=== PATIENT | male | born 1970 | race Caucasian/White ===

== ENCOUNTER 2019-01-25 00:07 | Emergency (ER) | payer MEDICARE ==
[2019-01-25] MEDS ORDERED: CEPHALEXIN 500 MG CAPSULE PO STA (00:29)
--- NOTE | 2019-01-25 00:37 | Emergency Department Record ---
History of Present Illness - General Chief complaint: Toothache Stated complaint: TOOTH INFECTION Time Seen by Provider: 01/25/19 00:24 Source: Patient Mode of Arrival: Ambulatory Limitations: No limitations - History of Present Illness Initial comments: pt feels he has an abscess starting in his mouth. he has no dentist. MD complaint: Tooth pain Onset/Timin -: Days(s) Location: Tooth # Severity scale (1-10): 4 Consistency: Constant, Getting worse Improves with: None Worsens with: None Context-Epistaxis: History of similar Context- Dental: History of dental caries, Poor dental care Associated Symptoms: Gum swelling, Toothache - Related Data Home Medications Medication Instructions Recorded Confirmed Last Taken Methadone HCl 10 mg PO BID 01/25/19 01/25/19 Unknown Previous Rx's Medication Instructions Recorded Alcohol Antiseptic Pads [Alcohol 1 each TP BID #100 med..pad 03/27/15 Wipes] Cephalexin [Keflex] 500 mg PO TID #20 cap 01/25/19 Allergies Allergy/AdvReac Type Severity Reaction Status Date / Time amoxicillin trihydrate Allergy rash Verified 01/25/19 00:16 [From Augmentin] potassium clavulanate Allergy rash Verified 01/25/19 00:16 [From Augmentin] Travel Screening - Travel/Exposure Within Last 30 Days Have you traveled within the last 30 days?: No - Travel Symptoms Symptom Screening: None Review of Systems Reviewed: No additional complaints except as noted below Constitutional: Reports: As per HPI. Denies: Chills, Fever, Malaise, Night sweats, Weakness, Weight change Eyes: Reports: As per HPI. Denies: Eye discharge, Eye pain, Photophobia, Vision change ENT: Reports: As per HPI, Dental pain. Denies: Congestion, Ear pain, Epistaxis, Hearing loss, Throat pain Respiratory: Reports: As per HPI. Denies: Cough, Dyspnea, Hemoptysis, Stridor, Wheezes Cardiovascular: Reports: As per HPI. Denies: Arrhythmia, Chest pain, Dyspnea on exertion, Edema, Murmurs, Orthopnea, Palpitations, Paroxysmal nocturnal dyspnea, Rheumatic Fever, Syncope Endocrine: Reports: As per HPI. Denies: Fatigue, Heat or cold intolerance, Polydipsia, Polyuria Gastrointestinal: Reports: As per HPI. Denies: Abdominal pain, Constipation, Diarrhea, Hematemesis, Hematochezia, Melena, Nausea, Vomiting Genitourinary: Reports: As per HPI. Denies: Dysuria, Frequency, Hematuria, Incontinence, Retention, Testicular pain, Testicular mass, Urgency Musculoskeletal: Reports: As per HPI. Denies: Arthralgia, Back pain, Gout, Joint swelling, Myalgia, Neck pain Skin: Reports: As per HPI. Denies: Bruising, Change in color, Change in hair/n ails, Lesions, Pruritus, Rash Neurological: Reports: As per HPI. Denies: Abnormal gait, Confusion, Headache, Numbness, Paresthesias, Seizure, Tingling, Tremors, Vertigo, Weakness Psychiatric: Reports: As per HPI. Denies: Anxiety, Auditory hallucinations, Depression, Homicidal thoughts, Suicidal thoughts, Visual hallucinations Hematological/Lymphatic: Reports: As per HPI. Denies: Anemia, Blood Clots, Easy bleeding, Easy bruising, Swollen glands Past Medical History - SOCIAL HISTORY Smoking Status: Current every day smoker - RESPIRATORY Hx Respiratory Disorders: No - CARDIOVASCULAR Hx Cardio Disorders: Yes Hx Hypertension: Yes - NEURO Hx Neuro Disorders: Yes Hx Neuropathy: Yes - GI Hx GI Disorders: No - Hx Genitourinary Disorders: No - ENDOCRINE Hx Endocrine Disorders: Yes Hx Diabetes: Yes - MUSCULOSKELETAL Hx Musculoskeletal Disorders: Yes Hx Back Injury: Yes - PSYCH Hx Psych Problems: No - HEMATOLOGY/ONCOLOGY Hx Hematology/Oncology Disorders: No Family Medical History Any Significant Family History?: Yes Hx Diabetes: Mother Physical Exam - General General Appearance: Alert, Oriented x3, Cooperative, No acute distress - Head Head exam: Normal inspection - Eye Eye exam: Normal appearance, PERRL, EOMI Pupils: Normal accommodation - ENT ENT exam: Normal exam, Mucous membranes moist, Normal external ear exam, Normal orophraynx, TM's normal bilaterally Ear exam: Normal external inspection. negative: External canal tenderness Nasal Exam: Normal inspection. negative: Discharge, Sinus tenderness Mouth exam: Normal external inspection, Tongue normal Teeth exam: Dental caries, Dental tenderness #, Gingival enlargement Throat exam: Normal inspection. negative: Tonsillar erythema, Tonsillar exudate - Neck Neck exam: Normal inspection, Full ROM. negative: Tenderness - Respiratory Respiratory exam: Normal lung sounds bilaterally. negative: Respiratory distress - Cardiovascular Cardiovascular Exam: Regular rate, Normal rhythm, Normal heart sounds - GI/Abdominal GI/Abdominal exam: Soft, Normal bowel sounds. negative: Tenderness - Rectal Rectal exam: Deferred - exam: Deferred - Extremities Extremities exam: Normal inspection, Full ROM, Normal capillary refill. negative: Tenderness - Back Back exam: Reports: Normal inspection, Full ROM. Denies: Muscle spasm, Rash noted, Tenderness - Neurological Neurological exam: Alert, Normal gait, Oriented X3, Reflexes normal - Psychiatric Psychiatric exam: Normal affect, Normal mood - Skin Skin exam: Dry, Intact, Normal color, Warm Course Vital Signs 01/25/19 00:16 Temperature 98.2 F Pulse Rate [ 78 Left] Respiratory 16 Rate Blood Pressure 128/86 [Left Arm] Pulse Ox 98 Disposition Disposition: Discharge Clinical Impression: Dental abscess Disposition: Home, Self-Care Condition: (1) Good Instructions: Dental Abscess (ED), Toothache (ED) Additional Instructions: follow up with dentist oliver. return sooner if worse. sleep elevated Prescriptions: Cephalexin [Keflex] 500 mg PO TID #20 cap Quality - Quality Measures Quality Measures: N/A - Blood Pressure Screening Does Patient Have Any of the Following: No Blood Pressure Classification: Pre-Hypertensive BP Reading Systolic Measurement: 128 Diastolic Measurement: 86 Screening for High Blood Pressure: < Pre-Hypertensive BP, F/U Documented > [G8950] Pre-Hypertensive Follow-up Interventions: Follow-up with rescreen every year.
== END 2019-01-25 00:48 | disposition home or self-care (01) ==
LOC: ER 00:07
DX: K04.7 Periapical abscess without sinus (principal); I10 Essential (primary) hypertension; F17.210 Nicotine dependence, cigarettes, uncomplicated
CPT/HCPCS: 99282

== ENCOUNTER 2019-07-04 12:57 | Emergency (ER) | payer MEDICARE ==
--- NOTE | 2019-07-04 13:24 | Emergency Department Record ---
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 Hx of similar related to poor dentition. No fever. Morning FBS 120. No LALA or swallowing. Not draining. Local pain. Many mission teeth. Onset/Timin -: Week(s) Location: Other Severity: Moderate Severity scale (1-10): 4 Quality: Other Consistency: Constant Improves with: NSAID Worsens with: Eating, Position - Related Data Previous Rx's Medication Instructions Recorded Alcohol Antiseptic Pads [Alcohol 1 each TP BID #100 med..pad 03/27/15 Wipes] Erythromycin Base [Erythromycin] 333 mg PO TID 7 Days #21 tablet. 07/04/19 Allergies Allergy/AdvReac Type Severity Reaction Status Date / Time amoxicillin trihydrate Allergy rash Verified 01/25/19 00:16 [From Augmentin] potassium clavulanate Allergy rash Verified 01/25/19 00:16 [From Augmentin] Travel Screening - Travel/Exposure Within Last 30 Days Have you traveled within the last 30 days?: No - Travel/Exposure Within Last Year Have you traveled outside the [place] in the last year?: No - Additonal Travel Details Have you been exposed to anyone with a communicable illness?: No - Travel Symptoms Symptom Screening: None Review of Systems Constitutional: Denies: Chills, Fever Eyes: Denies: Photophobia ENT: Denies: Congestion Respiratory: Denies: Cough Cardiovascular: Denies: Chest pain Endocrine: Denies: Fatigue Gastrointestinal: Denies: Nausea, Vomiting Musculoskeletal: Denies: Back pain Skin: Denies: Rash Neurological: Denies: Tingling Psychiatric: Denies: Anxiety Hematological/Lymphatic: Denies: Anemia Past Medical History - SOCIAL HISTORY Smoking Status: Current every day smoker - RESPIRATORY Hx Respiratory Disorders: No - CARDIOVASCULAR Hx Cardio Disorders: Yes Hx Hypertension: Yes - NEURO Hx Neuro Disorders: Yes Hx Neuropathy: Yes - GI Hx GI Disorders: No - Hx Genitourinary Disorders: No - ENDOCRINE Hx Endocrine Disorders: Yes Hx Diabetes: Yes - MUSCULOSKELETAL Hx Musculoskeletal Disorders: Yes Hx Back Injury: Yes - PSYCH Hx Psych Problems: No - HEMATOLOGY/ONCOLOGY Hx Hematology/Oncology Disorders: No Family Medical History Any Significant Family History?: Yes Hx Diabetes: Mother Physical Exam - General General Appearance: Alert, Oriented x3, Cooperative, No acute distress - Head Head exam: Atraumatic - Eye Eye exam: PERRL - ENT ENT exam: Mucous membranes moist Mouth exam: Other (Hard palate left anterior with 2cm area of swelling/induration without draining or erythema. ) Teeth exam: Other (multiple missing teeth. No gum inflamation or abscess. No dental pain with percussion. ) - Neck Neck exam: Normal inspection, Full ROM. negative: Lymphadenopathy, Tenderness - Respiratory Respiratory exam: Normal lung sounds bilaterally. negative: Respiratory distress - Cardiovascular Cardiovascular Exam: Regular rate - GI/Abdominal GI/Abdominal exam: Soft - Neurological Neurological exam: Alert, Normal gait, Oriented X3 - Psychiatric Psychiatric exam: Normal affect, Normal mood - Skin Skin exam: Normal color. negative: Rash Course Vital Signs 07/04/19 13:01 Temperature 98.8 F Pulse Rate 88 Pulse Rate [ 88 Pulse Ox Probe] Respiratory 16 Rate Blood Pressure 122/91 Blood Pressure 122/91 [Right Arm] Pulse Ox 97 - Reevaluation(s) Reevaluation #1: 07/04/19 13:28 Hard palate abscess PROCEDURE: 10cc syringe with 2 cc of 1% lido without epi, 18g needle: aspirated after 1cc of lido infiltrated - 1cc of thick yellow material followed by blood. Immediate relief of pressure. Pt expressed additional material with a towel and pressure of his thumb. Up at sink and swish and spit with warm water. Bleeding controlled. Tolerate procedure well! No complications. Disposition Disposition: Discharge Clinical Impression: Hard palate abscess, Diabetes Disposition: Home, Self-Care Condition: (1) Good Instructions: Dental Abscess (ED) Additional Instructions: See your Dentist in 1-2 days Return here as needed. Take antibiotic as instructed. [facility] [place] [facility] Prescriptions: Erythromycin Base [Erythromycin] 333 mg PO TID 7 Days #21 tablet. Time of Disposition: 13:24 Quality - Quality Measures Quality Measures: N/A - Blood Pressure Screening Does Patient Have Any of the Following: No Blood Pressure Classification: Hypertensive Reading Systolic Measurement: 122 Diastolic Measurement: 91 Screening for High Blood Pressure: Patient Exclusion, Hx of HTN [G9744]
== END 2019-07-04 13:35 | disposition home or self-care (01) ==
LOC: ER 12:57
DX: K12.2 Cellulitis and abscess of mouth (principal); I10 Essential (primary) hypertension; E11.9 Type 2 diabetes mellitus without complications; F17.210 Nicotine dependence, cigarettes, uncomplicated
CPT/HCPCS: 42000; 99283

== ENCOUNTER 2019-07-26 17:20 | Emergency (ER) | payer MEDICARE ==
--- NOTE | 2019-07-26 19:00 | Emergency Department Record ---
History of Present Illness - General Chief complaint: Toothache Stated complaint: MOUTH ABSCESS Time Seen by Provider: 07/26/19 17:27 Source: Patient Mode of Arrival: Ambulatory Limitations: No limitations - History of Present Illness Initial comments: pt has an abscess in his mouth reoccuring. he is trying to hold off going to the dentist until 08/14/19 when he has dental insurance. abscess is on the l palette. he is iddm. pt states he just wants abx complaint: Tooth pain Onset/Timin -: Month(s) Location: Other Severity scale (1-10): 5 Quality: Aching Consistency: Constant Improves with: None Worsens with: None Context- Dental: Other Associated Symptoms: Other - Related Data Previous Rx's Medication Instructions Recorded Alcohol Antiseptic Pads [Alcohol 1 each TP BID #100 med..pad 03/27/15 Wipes] Erythromycin Base [Erythromycin] 333 mg PO TID 7 Days #21 tablet. 07/04/19 Clindamycin HCl 450 mg PO Q8HR #56 capsule 07/26/19 Allergies Allergy/AdvReac Type Severity Reaction Status Date / Time amoxicillin trihydrate Allergy rash Verified 01/25/19 00:16 [From Augmentin] potassium clavulanate Allergy rash Verified 01/25/19 00:16 [From Augmentin] Travel Screening - Travel/Exposure Within Last 30 Days Have you traveled within the last 30 days?: No Review of Systems Reviewed: No additional complaints except as noted below Constitutional: Reports: As per HPI. Denies: Chills, Fever, Malaise, Night sweats, Weakness, Weight change Eyes: Reports: As per HPI. Denies: Eye discharge, Eye pain, Photophobia, Vision change ENT: Reports: As per HPI. Denies: Congestion, Dental pain, Ear pain, Epistaxis, Hearing loss, Throat pain Respiratory: Reports: As per HPI. Denies: Cough, Dyspnea, Hemoptysis, Stridor, Wheezes Cardiovascular: Reports: As per HPI. Denies: Arrhythmia, Chest pain, Dyspnea on exertion, Edema, Murmurs, Orthopnea, Palpitations, Paroxysmal nocturnal dyspnea, Rheumatic Fever, Syncope Endocrine: Reports: As per HPI. Denies: Fatigue, Heat or cold intolerance, Polydipsia, Polyuria Gastrointestinal: Reports: As per HPI. Denies: Abdominal pain, Constipation, Diarrhea, Hematemesis, Hematochezia, Melena, Nausea, Vomiting Genitourinary: Reports: As per HPI. Denies: Dysuria, Frequency, Hematuria, Incontinence, Retention, Testicular pain, Testicular mass, Urgency Musculoskeletal: Reports: As per HPI. Denies: Arthralgia, Back pain, Gout, Joint swelling, Myalgia, Neck pain Skin: Reports: As per HPI. Denies: Bruising, Change in color, Change in hair/nails, Lesions, Pruritus, Rash Neurological: Reports: As per HPI. Denies: Abnormal gait, Confusion, Headache, Numbness, Paresthesias, Seizure, Tingling, Tremors, Vertigo, Weakness Psychiatric: Reports: As per HPI. Denies: Anxiety, Auditory hallucinations, Depression, Homicidal thoughts, Suicidal thoughts, Visual hallucinations Hematological/Lymphatic: Reports: As per HPI. Denies: Anemia, Blood Clots, Easy bleeding, Easy bruising, Swollen glands Past Medical History - SOCIAL HISTORY Smoking Status: Current every day smoker - RESPIRATORY Hx Respiratory Disorders: No - CARDIOVASCULAR Hx Cardio Disorders: Yes Hx Hypertension: Yes - NEURO Hx Neuro Disorders: Yes Hx Neuropathy: Yes - GI Hx GI Disorders: No - Hx Genitourinary Disorders: No - ENDOCRINE Hx Endocrine Disorders: Yes Hx Diabetes: Yes - MUSCULOSKELETAL Hx Musculoskeletal Disorders: Yes Hx Back Injury: Yes - PSYCH Hx Psych Problems: No - HEMATOLOGY/ONCOLOGY Hx Hematology/Oncology Disorders: No Family Medical History Any Significant Family History?: Yes Hx Diabetes: Mother Physical Exam - General General Appearance: Alert, Oriented x3, Cooperative, No acute distress - Head Head exam: Normal inspection - Eye Eye exam: Normal appearance, PERRL, EOMI Pupils: Normal accommodation - ENT ENT exam: Normal exam, Mucous membranes moist, Normal external ear exam, TM's normal bilaterally. negative: Normal orophraynx Ear exam: Normal external inspection. negative: External canal tenderness Nasal Exam: Normal inspection. negative: Discharge, Sinus tenderness Mouth exam: Normal external inspection, Tongue normal Teeth exam: Dental caries, Gingival enlargement, Other (swelling on hard palette) Throat exam: Normal inspection. negative: Tonsillar erythema, Tonsillar exudate - Neck Neck exam: Normal inspection, Full ROM. negative: Tenderness - Respiratory Respiratory exam: Normal lung sounds bilaterally. negative: Respiratory distress - Cardiovascular Cardiovascular Exam: Regular rate, Normal rhythm, Normal heart sounds - GI/Abdominal GI/Abdominal exam: Soft, Normal bowel sounds. negative: Tenderness - Rectal Rectal exam: Deferred - exam: Deferred - Extremities Extremities exam: Normal inspection, Full ROM, Normal capillary refill. negative: Tenderness - Back Back exam: Reports: Normal inspection, Full ROM. Denies: Muscle spasm, Rash noted, Tenderness - Neurological Neurological exam: Alert, Normal gait, Oriented X3, Reflexes normal - Psychiatric Psychiatric exam: Normal affect, Normal mood - Skin Skin exam: Dry, Intact, Normal color, Warm Course Vital Signs 07/26/19 17:31 Temperature 98.9 F Pulse Rate 63 Respiratory 20 Rate Blood Pressure 119/98 Pulse Ox 91 L Disposition Disposition: Discharge Clinical Impression: Dental abscess Disposition: Home, Self-Care Condition: (1) Good Instructions: Dental Abscess (ED) Additional Instructions: follow up with dentist oliver. return sooner if worse. warm water swishes. sleep elevated Prescriptions: Clindamycin HCl 450 mg PO Q8HR #56 capsule Quality - Quality Measures Quality Measures: N/A - Blood Pressure Screening Does Patient Have Any of the Following: No Blood Pressure Classification: Hypertensive Reading Systolic Measurement: 119 Diastolic Measurement: 98 Screening for High Blood Pressure: < Pre-Hypertensive BP, F/U Documented > [G8950] Pre-Hypertensive Follow-up Interventions: Follow-up with rescreen every year.
== END 2019-07-26 19:19 | disposition home or self-care (01) ==
LOC: ER 17:20
DX: K04.7 Periapical abscess without sinus (principal); F17.210 Nicotine dependence, cigarettes, uncomplicated
CPT/HCPCS: 99283

== ENCOUNTER 2019-08-25 14:26 | Emergency (ER) | payer MEDICARE ==
[2019-08-25 16:00] LABS: ABSOLUTE NEUTROPHIL COUNT 6.12; HEMATOCRIT 49.5 % (42.0-52.0); HEMOGLOBIN 16.7 gm/dl (14.0-18.0); MEAN CELL VOLUME 85.8 fl (81-97); MEAN CORPUSCULAR HEMOGLOBIN 28.9 pg (27-33); MEAN CORPUSCULAR HGB CONC 33.7 g/dl (32-36); MEAN PLATELET VOLUME 8.8 fl (7.4-10.4); PLATELET COUNT 257 K/uL (130-400); RED BLOOD COUNT 5.77 M/uL (4.40-5.70); RED CELL DISTRIBUTION WIDTH 13.4 % (11.5-14.5); WHITE BLOOD COUNT W/O DIFF 9.6 K/uL (4.2-12.2)
[2019-08-25 16:05] LABS: BLOOD UREA NITROGEN 11 mg/dL (6-20); CREATININE 0.7 mg/dL (0.7-1.2); EST GLOMERULAR FILTRATION RATE > 60 mL/min
[2019-08-25 16:08] LABS: GLUCOSE,RANDOM 113 mg/dL (74-109)
--- NOTE | 2019-08-25 16:33 | CT SCAN REPORT ---
EXAMINATION: MAXILLOFACIAL WO CONTRAST EXAM DATE: 08/25/2019 4:16 PM TECHNIQUE: Noncontrast medical intensive CT sections through the maxillofacial region. INDICATION: abscess COMPARISON: None ENCOUNTER: Not applicable FINDINGS: A prominent lucency is seen surrounding the probably premolar tooth of the left upper jaw. Although d ifficult, this probably measures approximately 18 x 15 x 12 mm. A periapical abscess is suspected. Th e superior portion of this lucency demonstrates cortical break within the left maxillary sinus. The c hronic appearing opacification of the left maxillary sinus is likely odontogenic. Findings suggestive of mild multifocal dental disease elsewhere. Minimal/mild mucosal thickening is noted in the rest of the paranasal sinuses. The mastoid air cells are clear. The rest of the soft tissue have grossly unremarkable appearance. IMPRESSION: 1. The findings are most suggestive of an 18 mm periapical lucency/periapical abscess possibly surro unding the roots of the left upper premolar teeth. Opacification of the left maxillary sinus is noted, likely odontogenic. Dictated by: Edmund Carl MD on 08/25/2019 4:24 PM. .
[2019-08-25] MEDS ORDERED: CLINDAMYCIN 600MG/50ML PREMIX 600 MG/50 ML BAG IVPB ONE (16:55)
--- NOTE | 2019-08-25 17:37 | Emergency Department Record ---
History of Present Illness - General Chief complaint: Abscess Stated complaint: ABSCESS MOUTH Time Seen by Provider: 08/25/19 15:01 Source: Patient Mode of Arrival: Wheelchair Limitations: No limitations - History of Present Illness Initial comments: pt has repeat abscess in his mouth. he has been treated for it in the past but has not f/u with a dentist. he is worried the infection is going to his brain Onset/Timin -: Days(s) Location: Generalized Severity: Mild Improves with: None Worsens with: None Associated symptoms: Malaise, Other - Related Data Previous Rx's Medication Instructions Recorded Alcohol Antiseptic Pads [Alcohol 1 each TP BID #100 med..pad 03/27/15 Wipes] Clindamycin HCl 450 mg PO Q8HR #63 capsule 08/25/19 Allergies Allergy/AdvReac Type Severity Reaction Status Date / Time amoxicillin trihydrate Allergy rash Unverified 08/20/19 10:04 [From Augmentin] potassium clavulanate Allergy rash Unverified 08/20/19 10:04 [From Augmentin] Travel Screening - Travel/Exposure Within Last 30 Days Have you traveled within the last 30 days?: No - Travel/Exposure Within Last Year Have you traveled outside the [place] in the last year?: No - Additonal Travel Details Have you been exposed to anyone with a communicable illness?: No - Travel Symptoms Symptom Screening: None Review of Systems Reviewed: No additional complaints except as noted below Constitutional: Reports: As per HPI. Denies: Chills, Fever, Malaise, Night sweats, Weakness, Weight change Eyes: Reports: As per HPI. Denies: Eye discharge, Eye pain, Photophobia, Vision change ENT: Reports: As per HPI, Dental pain. Denies: Congestion, Ear pain, Epistaxis, Hearing loss, Throat pain Respiratory: Reports: As per HPI. Denies: Cough, Dyspnea, Hemoptysis, Stridor, Wheezes Cardiovascular: Reports: As per HPI. Denies: Arrhythmia, Chest pain, Dyspnea on exertion, Edema, Murmurs, Orthopnea, Palpitations, Paroxysmal nocturnal dyspnea, Rheumatic Fever, Syncope Endocrine: Reports: As per HPI. Denies: Fatigue, Heat or cold intolerance, Polydipsia, Polyuria Gastrointestinal: Reports: As per HPI. Denies: Abdominal pain, Constipation, Diarrhea, Hematemesis, Hematochezia, Melena, Nausea, Vomiting Genitourinary: Reports: As per HPI. Denies: Dysuria, Frequency, Hematuria, Incontinence, Retention, Testicular pain, Testicular mass, Urgency Musculoskeletal: Reports: As per HPI. Denies: Arthralgia, Back pain, Gout, Joint swelling, Myalgia, Neck pain Skin: Reports: As per HPI. Denies: Bruising, Change in color, Change in hair/nails, Lesions, Pruritus, Rash Neurological: Reports: As per HPI. Denies: Abnormal gait, Confusion, Headache, Numbness, Paresthesias, Seizure, Tingling, Tremors, Vertigo, Weakness Psychiatric: Reports: As per HPI. Denies: Anxiety, Auditory hallucinations, Depression, Homicidal thoughts, Suicidal thoughts, Visual hallucinations Hematological/Lymphatic: Reports: As per HPI. Denies: Anemia, Blood Clots, Easy bleeding, Easy bruising, Swollen glands Past Medical History - SOCIAL HISTORY Smoking Status: Light tobacco smoker (<10/day) Alcohol Use: None Drug Use: None - RESPIRATORY Hx Respiratory Disorders: No - CARDIOVASCULAR Hx Cardio Disorders: Yes Hx Hypertension: Yes - NEURO Hx Neuro Disorders: Yes Hx Neuropathy: Yes - GI Hx GI Disorders: No - Hx Genitourinary Disorders: No - ENDOCRINE Hx Endocrine Disorders: Yes Hx Diabetes: Yes - MUSCULOSKELETAL Hx Musculoskeletal Disorders: Yes Hx Back Injury: Yes - PSYCH Hx Psych Problems: No - HEMATOLOGY/ONCOLOGY Hx Hematology/Oncology Disorders: No Family Medical History Any Significant Family History?: No Hx Diabetes: Mother Physical Exam - General General Appearance: Alert, Oriented x3, Cooperative, Mild distress - Head Head exam: Normal inspection - Eye Eye exam: Normal appearance, PERRL, EOMI Pupils: Normal accommodation - ENT ENT exam: Normal exam, Mucous membranes moist, Normal external ear exam, TM's normal bilaterally, Other (abscess l upper jaw adjacent to roof and tooth). negative: Normal orophraynx Ear exam: Normal external inspection. negative: External canal tenderness Nasal Exam: Normal inspection. negative: Discharge, Sinus tenderness Mouth exam: Normal external inspection, Tongue normal Teeth exam: Normal inspection. negative: Dental caries Throat exam: Normal inspection. negative: Tonsillar erythema, Tonsillar exudate Image of Mouth/Teeth: 1 - abscess - Neck Neck exam: Normal inspection, Full ROM. negative: Tenderness - Respiratory Respiratory exam: Normal lung sounds bilaterally. negative: Respiratory distress - Cardiovascular Cardiovascular Exam: Regular rate, Normal rhythm, Normal heart sounds - GI/Abdominal GI/Abdominal exam: Soft, Normal bowel sounds. negative: Tenderness - Rectal Rectal exam: Deferred - exam: Deferred - Extremities Extremities exam: Normal inspection, Full ROM, Normal capillary refill. negative: Tenderness - Back Back exam: Reports: Normal inspection, Full ROM. Denies: Muscle spasm, Rash noted, Tenderness - Neurological Neurological exam: Alert, CN II-XII intact, Normal gait, Oriented X3 - Psychiatric Psychiatric exam: Normal affect, Normal mood - Skin Skin exam: Dry, Intact, Normal color, Warm Course Vital Signs 08/25/19 08/25/19 14:33 16:46 Temperature 97.4 F L Pulse Rate 72 Pulse Rate [ 69 Right] Respiratory 18 20 Rate Blood Pressure 142/99 Blood Pressure 129/79 [Left Arm] Pulse Ox 98 100 Medical Decision Making - Lab Data Result diagrams: 08/25/19 15:49 08/25/19 15:49 Lab Results 08/25/19 08/25/19 08/25/19 Range/Units 15:49 15:49 15:49 WBC 9.6 (4.2-12.2) K/uL RBC 5.77 H (4.40-5.70) M/uL Hgb 16.7 (14.0-18.0) gm/dl Hct 49.5 (42.0-52.0) % MCV 85.8 (81-97) fl MCH 28.9 (27-33) pg MCHC 33.7 (32-36) g/dl RDW 13.4 (11.5-14.5) % Plt Count 257 (130-400) K/uL MPV 8.8 (7.4-10.4) fl Neutrophils % 64.0 (47-80) % Eosinophils % Not Reportable Basophils % Not Reportable Absolute Neutrophils 6.12 Lymphocytes 24.0 (16-45) % Monocytes 6.0 (0-9) % Basophils 1.0 (0-6) % Eosinophil Count 5.0 (0-6) % Sodium 141 (136-145) mmol/L Potassium 4.0 (3.4-4.5) mmol/L Chloride 101 (98-107) mmol/L Carbon Dioxide 29.0 (22-29) mmol/L Anion Gap 11.0 (7-16) BUN 11 (6-20) mg/dL Creatinine 0.7 (0.7-1.2) mg/dL Estimated GFR > 60 mL/min Random Glucose 113 H (74-109) mg/dL Lactic Acid 0.9 (0.5-2.2) mmol/L Calcium 8.9 (8.6-10.0) mg/dL Disposition Disposition: Discharge Clinical Impression: Dental abscess Disposition: Home, Self-Care Condition: (1) Good Instructions: Dental Abscess (ED) Additional Instructions: follow up with dentist oliver. return sooner if worse Prescriptions: Clindamycin HCl 450 mg PO Q8HR #63 capsule Quality - Quality Measures Quality Measures: N/A - Blood Pressure Screening Does Patient Have Any of the Following: Active Dx of HTN Blood Pressure Classification: Hypertensive Reading Systolic Measurement: 142 Diastolic Measurement: 99 Screening for High Blood Pressure: Patient Exclusion, Hx of HTN [G9744]
== END 2019-08-25 17:49 | disposition home or self-care (01) ==
LOC: ER 14:26
DX: K04.7 Periapical abscess without sinus (principal); I10 Essential (primary) hypertension; F17.210 Nicotine dependence, cigarettes, uncomplicated
CPT/HCPCS: 70486; 80048; 83605; 85027; 99284